=== PATIENT | male | born 1930 | race Caucasian/White ===

== ENCOUNTER 2018-04-12 01:04 | Inpatient (IN) ==
[2018-04-12] MEDS ORDERED: Acetaminophen 650 MG Supp RECTAL ONE (01:11)
[2018-04-12] MEDS ORDERED: Vancomycin Inj 1,000 MG in Sodium Chlor 0.9% Inj 250 ML IV.SIG ONE (01:11)
[2018-04-12] MEDS ORDERED: Piperacil/Tazo 4.5 GM Premix 4.5 GM/100 ML BAG IV.SIG SCH (01:15)
[2018-04-12 01:42] LABS: Baso # (Auto) 0.1 th/mm3 (0.0-0.2); Baso % (Auto) 0.3 % (0.0-2.0); Eos % (Auto) 0.1 % (0.0-4.0); Hematocrit 34.3 % (39.0-51.0); Hemoglobin 11.3 gm/dL (13.0-17.0); Lymph # (Auto) 0.9 th/mm3 (1.0-4.8); Lymph % (Auto) 3.5 % (9.0-44.0); Mean Corpuscular HGB Conc 32.8 % (32.0-36.0); Mean Corpuscular Hemoglobin 31.3 pg (27.0-34.0); Mean Corpuscular Volume 95.2 fL (80.0-100.0); Mean Platelet Volume 10.1 fL (7.0-11.0); Mono # (Auto) 1.3 th/mm3 (0.0-0.9); Mono % (Auto) 5.4 % (0.0-8.0); Neut # (Auto) 22.3 th/mm3 (1.8-7.7); Neut % (Auto) 90.7 % (16.0-70.0); Platelet Count 202 th/mm3 (150-450); Red Blood Count 3.61 mil/mm3 (4.50-5.90); Red Cell Distribution Width 13.8 % (11.6-17.2); White Blood Count 24.6 th/mm3 (4.0-11.0)
--- NOTE | 2018-04-12 01:48 | XR ---
EXAM DATE: 04/12/2018 1:42 AM EST AGE/SEX: 88 years / Male INDICATIONS: Fever. CLINICAL DATA: This is the patient's initial encounter. Patient reports that signs and symptoms have been present for 1 day and indicates a pain score of Nonresponsive. MEDICAL/SURGICAL HISTORY: Hypertension. Diabetes mellitus type II. Dementia. Intercerebral h emorrhage. None. COMPARISON: [facility] – [place], CHEST SINGLE AP, 04/23/2014. . FINDINGS: A single AP view of the chest demonstrates the lungs to be symmetrically hypoinflated without evidenc e of mass, infiltrate or effusion. Minimal atelectatic changes above the left hemidiaphragm The cardi omediastinal contours are unremarkable. Osseous structures are intact. CONCLUSION: 1. Hypoinflation with minimal atelectatic changes above the left hemidiaphragm. 2. Otherwise negative. No confluent infiltrate. Electronically signed by: Kash Cerrato MD Board Certified Radiologist 04/12/2018 1:47 AM EST
[2018-04-12 01:55] LABS: Alkaline Phosphatase 87 U/L (45-117); Total Protein 6.1 g/dL (6.4-8.2)
[2018-04-12 01:56] LABS: Alanine Aminotransferase 26 U/L (12-78); Albumin 2.3 g/dL (3.4-5.0); Anion Gap 6 meq/L (5-15); Aspartate Aminotransferase 18 U/L (15-37); Blood Urea Nitrogen 43 mg/dL (7-18); Calcium 8.6 mg/dL (8.5-10.1); Carbon Dioxide 29.6 meq/L (21.0-32.0); Chloride 104 meq/L (98-107); Glomerular Filtration Rate 31 mL/min (>89); Glucose,Random 204 mg/dL (74-106); Magnesium 1.9 mg/dL (1.5-2.5); Sodium 140 meq/L (136-145)
[2018-04-12 01:57] LABS: Potassium 5.1 meq/L (3.5-5.1)
[2018-04-12] MEDS ORDERED: Sodium Chlor 0.9% Inj 500 ML IV.SIG SCH (02:00)
[2018-04-12] MEDS ORDERED: Acetaminophen 325 MG Tablet PO PRN (02:07)
[2018-04-12] MEDS ORDERED: Vancomycin Consult Pharmacy OTHER PRN (02:07)
[2018-04-12] MEDS ORDERED: Bisacodyl 10 MG Supp RECTAL PRN (02:07)
--- NOTE | 2018-04-12 02:09 | ED ---
HPI General Stated Complaint: medical Time Seen by Provider: 04/12/18 01:07 Source: patient and EMS Mode of arrival: EMS Limitations: no limitations and altered mental status History of Present Illness HPI narrative: 88-year-old male came to the emergency room by EMS from the detention after he was found altered mental status and hypoxic by the detention staff during their midnight rounds. Patient felt warm to them and hypoxic. 911 was called and when EMS arrived patient was on a nonrebreather. Normally as per the detention staff patient is alert, oriented x1. However currently he is eyes closed and noncommunicative. Rectal temperature is 99.8. Patient is unable to give any meaningful history. Related Data Home Medications Medication Instructions Recorded Confirmed acetaminophen 650 mg DE DAILY PRN 04/12/18 04/12/18 alprazolam 0.25 mg PO BID 04/12/18 04/12/18 divalproex [Depakote Sprinkles] 375 mg PO BID 04/12/18 04/12/18 ferrous sulfate 325 mg PO DAILY 04/12/18 04/12/18 ipratropium-albuterol 3 ml INHALATION Q6H PRN 04/12/18 04/12/18 latanoprost 1 drp OPHTHALMIC (EYE) QPM 04/13/18 04/13/18 mirtazapine [Remeron] 15 mg PO DAILY 04/13/18 04/13/18 Previous Rx's Medication Instructions Recorded amoxicillin-pot clavulanate 1 tab PO BID #14 tab 04/13/18 [Augmentin] magnesium hydroxide [Milk of 30 ml PO Q12H PRN 30 Days #118 ml 04/13/18 Magnesia] Allergies Allergy/AdvReac Type Severity Reaction Status Date / Time No Known Allergies Allergy Verified 04/12/18 01:55 Review of Systems ROS Unobtainable ROS Unobtainable: unobtainable due to mental status PMFSH Medical History Medical History Alcohol abuse (Acute) Anxiety (Acute) Dementia (Acute) Diabetes (Acute) Grade I diastolic dysfunction (Acute) Hypertension (Acute) Intracerebral hemorrhage (Acute) Muscle weakness (Acute) Surgical History Surgical History History of cholecystectomy (Acute) History of squamous cell carcinoma excision (Acute) Family History Family History Mother Stomach cancer Sister Stroke Stomach cancer Brother Stroke Social History Social History Substance History: No History of Abuse and Past History Second Hand Smoke Exposure: No Smoking Status: Former smoker (Quit in 1976) How Often Do You Have a Drink Containing Alcohol: Never (Drank 1 pint of gin daily until entering SNF) Recent Travel in [facility] within the Last 8 Weeks: No Recent Out of Country Travel within the Last 8 Weeks: No Exam Narrative Exam Narrative: GENERAL: Elderly, eyes closed, moderate distress, noncommunicative SKIN: Focused skin assessment warm/dry. HEAD: Atraumatic. Normocephalic. EYES: Pupils equal and round. No scleral icterus. No injection or drainage. ENT: No nasal bleeding or discharge. Mucous membranes pink and moist. NECK: Trachea midline. No JVD. CARDIOVASCULAR: Regular rate and rhythm. No murmur appreciated. RESPIRATORY: No accessory muscle use. Coarse crackles bilateral GASTROINTESTINAL: Abdomen soft, non-tender, nondistended. Hepatic and splenic margins not palpable. MUSCULOSKELETAL: No obvious deformities. No clubbing. No cyanosis. No edema. NEUROLOGICAL: GCS of 10. No obvious cranial nerve deficits. Motor grossly within normal limits. Noncommunicative PSYCHIATRIC: Appropriate mood and affect; insight and judgment normal. Course Initial Documented Vital Signs Temperature 99.8 F H 04/12/18 01:29 Pulse Rate 84 04/12/18 01:29 Respiratory Rate 18 04/12/18 01:29 Blood Pressure 136/64 04/12/18 01:29 Pulse Oximetry 94 L 04/12/18 01:29 Last Documented Vital Signs Temperature 97.9 F 04/14/18 11:18 Pulse Rate 66 04/14/18 12:00 Respiratory Rate 20 04/14/18 11:18 Blood Pressure 125/76 04/14/18 11:18 Pulse Oximetry 95 04/14/18 11:18 Critical Care Time Critical Care Time: Yes Total Critical Care Time: 30 Attestation: Aggregate critical care time was 30 minutes. Time to perform other separately billable procedures was not included in the critical care time. My time did not include minutes spent treating any other patients simultaneously or on activities that did not directly contribute to the patient's treatment. The services I provided to this patient were to treat and/or prevent clinically significant deterioration that could result in: Sepsis, sepsis protocol I provided critical care services requiring my management, as noted below: Chart data review, documentation time, medication orders and management, vital sign assessments/reviewing monitor data, ordering and reviewing lab tests, ordering and interpreting/reviewing x-rays and diagnostic studies, care of the patient and discussion of the patient with the admitting physicians. Medical Decision Making MDM Narrative Medical decision making narrative: 2:06 AM blood test results are back and patient has significantly elevated leukocytes with left shift. Lactic acid is elevated. Chest x-ray has been read by the radiologist negative. Patient is getting IV fluid bolus and Zosyn and vancomycin for sepsis coverage. Patient has been admitted to the hospitalist. Patient is a full code as per the paperwork. Medical Screen Exam Complete: Yes Emergency Medical Condition: Yes Lab Data Result diagrams: 04/13/18 12:04 04/13/18 04:58 Lab Results 04/12/18 04/12/18 04/12/18 Range/Units 01:20 01:20 01:20 WBC 24.6 H (4.0-11.0) th/mm3 RBC 3.61 L (4.50-5.90) mil/mm3 Hgb 11.3 L (13.0-17.0) gm/dL Hct 34.3 L (39.0-51.0) % MCV 95.2 (80.0-100.0) fL MCH 31.3 (27.0-34.0) pg MCHC 32.8 (32.0-36.0) % RDW 13.8 (11.6-17.2) % Plt Count 202 (150-450) th/mm3 MPV 10.1 (7.0-11.0) fL Prelim Diff (Auto) Slide review pending Neut % (Auto) 90.7 H (16.0-70.0) % Lymph % (Auto) 3.5 L (9.0-44.0) % [place] % (Auto) 5.4 (0.0-8.0) % Eos % (Auto) 0.1 (0.0-4.0) % Baso % (Auto) 0.3 (0.0-2.0) % Neut # (Auto) 22.3 H (1.8-7.7) th/mm3 Lymph # (Auto) 0.9 L (1.0-4.8) th/mm3 Benton # (Auto) 1.3 H (0.0-0.9) th/mm3 Eos # (Auto) 0.0 (0.0-0.4) th/mm3 Baso # (Auto) 0.1 (0.0-0.2) th/mm3 WBC Differential Manual diff final Seg Neuts % (Manual) 73 H (16-70) % Band Neuts % (Manual) 20 H (0-6) % Lymphocytes % (Manual) 1 L (9-44) % Monocytes % (Manual) 5 (0-8) % Metamyelocytes % (Man) 1 (0-1) % Abs Neuts (Manual) 23.1 H (1.8-7.7) th/mm3 Differential Comment . Toxic Vacuolation Present H (None) Platelet Estimate Normal (Normal) Platelet Morphology Normal (Normal) Sodium 140 (136-145) meq/L Potassium 5.1 (3.5-5.1) meq/L Chloride 104 (98-107) meq/L Carbon Dioxide 29.6 (21.0-32.0) meq/L Anion Gap 6 (5-15) meq/L BUN 43 H (7-18) mg/dL Creatinine 2.05 H (0.60-1.30) mg/dL Estimated GFR 31 L (>89) mL/min Random Glucose 204 H (74-106) mg/dL Lactic Acid 3.3 H (0.4-2.0) mmol/L Calcium 8.6 (8.5-10.1) mg/dL Magnesium 1.9 (1.5-2.5) mg/dL Total Bilirubin 0.6 (0.2-1.0) mg/dL AST 18 (15-37) U/L ALT 26 (12-78) U/L Alkaline Phosphatase 87 (45-117) U/L Total Protein 6.1 L (6.4-8.2) g/dL Albumin 2.3 L (3.4-5.0) g/dL Urine Color (Yellw/Straw) Urine Clarity (Clear) Urine pH (5.0-8.5) Ur Specific [place] (1.002-1.035) Urine Protein (Neg-Trace) mg/dL Urine Glucose (UA) (Negative) mg/dL Urine Ketones (Negative) mg/dL Urine Occult Blood (Negative) Urine Nitrate (Negative) Urine Bilirubin (Negative) Urine Urobilinogen (Less than 2) mg/dL Ur Leukocyte Esterase (Negative) Urine RBC (0-3) /hpf Urine WBC (0-5) /hpf Urine WBC Clumps (None) Ur Squamous Epith Cells (0-5) /hpf Ur Renal Epithelial Cell (None) /hpf Urine Bacteria (None) /hpf Hyaline Casts (0-3) /lpf Granular Casts (None) /lpf Urine Mucus (Occasional) /lpf Micro UA Comment Ur Microscopic Review Urine Culture Comments 04/12/18 04/12/18 04/13/18 Range/Units 04:20 04:30 04:58 WBC (4.0-11.0) th/mm3 RBC (4.50-5.90) mil/mm3 Hgb (13.0-17.0) gm/dL Hct (39.0-51.0) % MCV (80.0-100.0) fL MCH (27.0-34.0) pg MCHC (32.0-36.0) % RDW (11.6-17.2) % Plt Count (150-450) th/mm3 MPV (7.0-11.0) fL Prelim Diff (Auto) Neut % (Auto) (16.0-70.0) % Lymph % (Auto) (9.0-44.0) % Benton % (Auto) (0.0-8.0) % Eos % (Auto) (0.0-4.0) % Baso % (Auto) (0.0-2.0) % Neut # (Auto) (1.8-7.7) th/mm3 Lymph # (Auto) (1.0-4.8) th/mm3 Benton # (Auto) (0.0-0.9) th/mm3 Eos # (Auto) (0.0-0.4) th/mm3 Baso # (Auto) (0.0-0.2) th/mm3 WBC Differential Seg Neuts % (Manual) (16-70) % Band Neuts % (Manual) (0-6) % Lymphocytes % (Manual) (9-44) % Monocytes % (Manual) (0-8) % Metamyelocytes % (Man) (0-1) % Abs Neuts (Manual) (1.8-7.7) th/mm3 Differential Comment Toxic Vacuolation (None) Platelet Estimate (Normal) Platelet Morphology (Normal) Sodium 143 (136-145) meq/L Potassium 4.2 D (3.5-5.1) meq/L Chloride 112 H D (98-107) meq/L Carbon Dioxide 25.5 (21.0-32.0) meq/L Anion Gap 6 (5-15) meq/L BUN 34 H (7-18) mg/dL Creatinine 1.29 (0.60-1.30) mg/dL Estimated GFR 53 L (>89) mL/min Random Glucose 81 D (74-106) mg/dL Lactic Acid 2.5 H (0.4-2.0) mmol/L Calcium 8.1 L (8.5-10.1) mg/dL Magnesium (1.5-2.5) mg/dL Total Bilirubin 0.6 (0.2-1.0) mg/dL AST 21 (15-37) U/L ALT 19 (12-78) U/L Alkaline Phosphatase 75 (45-117) U/L Total Protein 5.6 L (6.4-8.2) g/dL Albumin 2.0 L (3.4-5.0) g/dL Urine Color [place] (Yellw/Straw) Urine Clarity Cloudy H (Clear) Urine pH 5.0 (5.0-8.5) Ur Specific [place] 1.020 (1.002-1.035) Urine Protein Negative (Neg-Trace) mg/dL Urine Glucose (UA) Negative (Negative) mg/dL Urine Ketones Negative (Negative) mg/dL Urine Occult Blood Negative (Negative) Urine Nitrate Negative (Negative) Urine Bilirubin Negative (Negative) Urine Urobilinogen 2.0 H (Less than 2) mg/dL Ur Leukocyte Esterase Trace H (Negative) Urine RBC 2 (0-3) /hpf Urine WBC 5 (0-5) /hpf Urine WBC Clumps Occasional H (None) Ur Squamous Epith Cells 1 (0-5) /hpf Ur Renal Epithelial Cell <1 (None) /hpf Urine Bacteria Rare H (None) /hpf Hyaline Casts 34 (0-3) /lpf Granular Casts 9 (None) /lpf Urine Mucus Few H (Occasional) /lpf Micro UA Comment Cath-culture ind Ur Microscopic Review Not Reportable Urine Culture Comments Cath-cult indicated 04/13/18 Range/Units 12:04 WBC 13.0 H (4.0-11.0) th/mm3 RBC 3.40 L (4.50-5.90) mil/mm3 Hgb 10.8 L (13.0-17.0) gm/dL Hct 32.7 L (39.0-51.0) % MCV 96.2 (80.0-100.0) fL MCH 31.8 (27.0-34.0) pg MCHC 33.1 (32.0-36.0) % RDW 13.9 (11.6-17.2) % Plt Count 172 (150-450) th/mm3 MPV 9.8 (7.0-11.0) fL Prelim Diff (Auto) Neut % (Auto) 81.1 H (16.0-70.0) % Lymph % (Auto) 10.0 (9.0-44.0) % Benton % (Auto) 7.3 (0.0-8.0) % Eos % (Auto) 1.4 (0.0-4.0) % Baso % (Auto) 0.2 (0.0-2.0) % Neut # (Auto) 10.5 H (1.8-7.7) th/mm3 Lymph # (Auto) 1.3 (1.0-4.8) th/mm3 Benton # (Auto) 1.0 H (0.0-0.9) th/mm3 Eos # (Auto) 0.2 (0.0-0.4) th/mm3 Baso # (Auto) 0.0 (0.0-0.2) th/mm3 WBC Differential . Seg Neuts % (Manual) (16-70) % Band Neuts % (Manual) (0-6) % Lymphocytes % (Manual) (9-44) % Monocytes % (Manual) (0-8) % Metamyelocytes % (Man) (0-1) % Abs Neuts (Manual) (1.8-7.7) th/mm3 Differential Comment Auto diff final Toxic Vacuolation (None) Platelet Estimate (Normal) Platelet Morphology (Normal) Sodium (136-145) meq/L Potassium (3.5-5.1) meq/L Chloride (98-107) meq/L Carbon Dioxide (21.0-32.0) meq/L Anion Gap (5-15) meq/L BUN (7-18) mg/dL Creatinine (0.60-1.30) mg/dL Estimated GFR (>89) mL/min Random Glucose (74-106) mg/dL Lactic Acid (0.4-2.0) mmol/L Calcium (8.5-10.1) mg/dL Magnesium (1.5-2.5) mg/dL Total Bilirubin (0.2-1.0) mg/dL AST (15-37) U/L ALT (12-78) U/L Alkaline Phosphatase (45-117) U/L Total Protein (6.4-8.2) g/dL Albumin (3.4-5.0) g/dL Urine Color (Yellw/Straw) Urine Clarity (Clear) Urine pH (5.0-8.5) Ur Specific [place] (1.002-1.035) Urine Protein (Neg-Trace) mg/dL Urine Glucose (UA) (Negative) mg/dL Urine Ketones (Negative) mg/dL Urine Occult Blood (Negative) Urine Nitrate (Negative) Urine Bilirubin (Negative) Urine Urobilinogen (Less than 2) mg/dL Ur Leukocyte Esterase (Negative) Urine RBC (0-3) /hpf Urine WBC (0-5) /hpf Urine WBC Clumps (None) Ur Squamous Epith Cells (0-5) /hpf Ur Renal Epithelial Cell (None) /hpf Urine Bacteria (None) /hpf Hyaline Casts (0-3) /lpf Granular Casts (None) /lpf Urine Mucus (Occasional) /lpf Micro UA Comment Ur Microscopic Review Urine Culture Comments Imaging Data Radiologist's impression: Chest X-Ray 04/12/18 01:11 CONCLUSION: 1. Hypoinflation with minimal atelectatic changes above the left hemidiaphragm. 2. Otherwise negative. No confluent infiltrate. ECG Data Attestation: I personally reviewed and interpreted this ECG as follows: Discharge Plan Discharge Disposition Patient Disposition: ED Admit(ED Internal Use Only) Discharge Condition Condition: Fair Discharge Order Discharge Orders: Discharge Order (Routine); Ordered 04/14/18 Ordered By: Magda Gupta ED Use Only Admit Order (Routine); Ordered 04/12/18 Ordered By: Marilu Chappell Discharge Details Anticipated Discharge Date: 04/14/18 Physicians Team ED Provider: Marilu Chappell Primary Care Provider: Josep Pacheco Attending Provider: Magda Gupta Other Providers: Kali Powers ; [facility] ED Status: Left Department Discharge Information Discharge Date/Time: 04/12/18 06:20
[2018-04-12] MEDS ORDERED: Sod Chloride 0.9% Inj 1,000 ML IV.SIG SCH (02:15)
[2018-04-12 02:27] LABS: Lymphocytes 1 % (9-44); Metamyelocytes 1 % (0-1); Monocytes 5 % (0-8)
[2018-04-12 02:30] LABS: Platelet Estimate Normal (Normal); Platelet Morphology Normal (Normal); Toxic Vacuolation Present
--- NOTE | 2018-04-12 03:05 | P.HPIM ---
History of Present Illness Primary Care Physician: Josep Pacheco DO History of Present Illness: This is an 88-year-old male with a PMH of Anxiety, Dementia, HTN and h/o ICH who was brought to the ER by EMS from SNF for AMS and hypoxia. Per report, pt normally oriented x1 at baseline, however noted to be more lethargic, non-verbal. Unable to obtain history from patient due to AMS. Upon EMS arrival, noted to be hypotensive w/ BP 70's. BP 136/64, HR 84, O2 sat 94% on RA, Temp 99.8. WBC 24.6. Creatinine 2.05, no previous labs for comparison. Lactic Acid 3.3. UA negative. CXR with hypoinflation. S/p Vanc/ Zosyn in ER. Diagnosis (1) Sepsis: (2) Encephalopathy: (3) ARLEEN (acute kidney injury): Inpatient Certification Inpatient Certification: I certify that the inpatient services were ordered in accordance with Medicare regulations governing the order. This includes certification that hospital inpatient services are reasonable and necessary and in the case of services not specified as inpatient-only under 42 CFR 419.22(n), that they are appropriately provided as inpatient services in accordance to with the 2-midnight benchmark under 43 CFR 412.3(e) Estimated Total Length of Stay (Days): 2 Plans for Post Hospital Care: Not yet determined Review of Systems PAST FAMILY HISTORY: Unknown ROS Unobtainable: unobtainable due to mental condition and unobtainable due to mental status PMFSH Medical History Medical History Alcohol abuse (Acute) Anxiety (Acute) Dementia (Acute) Hypertension (Acute) Intracerebral hemorrhage (Acute) Muscle weakness (Acute) Social History Social History Recent Travel in [facility] within the Last 8 Weeks: No Recent Out of Country Travel within the Last 8 Weeks: No Medications and Allergies Allergies Allergy/AdvReac Type Severity Reaction Status Date / Time No Known Allergies Allergy Verified 04/12/18 01:55 Active Medications: Active Medications Acetaminophen (Tylenol) 650 mg PO Q4H PRN PRN Reason: Temp > 100.4 Al Hydroxide/Mg Hydroxide (Milk Of Magnesia Liq) 30 ml PO Q12H PRN PRN Reason: Mild Constipation Bisacodyl (Dulcolax Supp) 10 mg RECTAL DAILY PRN PRN Reason: SEVERE CONSITIPATION Piperacillin/Tazobactam/Dextrose (Zosyn 4.5 Gm Premix) 4.5 gm in 100 mls @ 200 mls/hr IV.SIG ONCE KWAME Last Admin: 04/12/18 01:54 Dose: 200 mls/hr Sodium Chloride (Ns Inj) 1,000 mls @ 1,000 mls/hr IV.SIG BOLUS KWAME Stop: 04/12/18 03:14 Cefepime HCl 1,000 mg/ Sodium (Chloride) 100 mls @ 200 mls/hr IV.SIG Q12H KWAME Sodium Chloride (Ns Inj) 1,000 mls @ 100 mls/hr IV.CONT .Q10H KWAME Lactulose (Lactulose Liq) 30 ml PO DAILY PRN PRN Reason: SEVERE CONSITIPATION Ondansetron HCl (Zofran Inj) 4 mg IV.PUSH Q6H PRN PRN Reason: NAUSEA OR VOMITING Pharmacy Profile Note (Vancomycin Consult Pharmacy) 1 each OTHER UNSCH PRN PRN Reason: Pharmacy to dose Senna/Docusate Sodium (Gege-Colace) 1 tab PO BID KWAME Sennosides (Senokot) 17.2 mg PO Q12H PRN PRN Reason: Moderate Constipation Sodium Chloride (Ns Flush) 2 ml IV.FLUSH BID KWAME Sodium Chloride (Ns Flush) 2 ml IV.FLUSH PRN PRN PRN Reason: FLUSH AFTER USING IV ACCESS Physical Exam Vital signs: Vital Signs 04/12/18 01:29 04/12/18 01:56 Temperature 99.8 F H Pulse Rate 84 82 Respiratory Rate 18 Blood Pressure 136/64 114/56 L Pulse Oximetry 94 L 98 Narrative: PE: GENERAL: Elderly male in no acute distress, not following commands, nonverbal. SKIN: Focused skin assessment warm and dry. HEENT: PERRLA, EOMI. No scleral icterus or conjunctival pallor. No lid lag or facial droop. CARDIOVASCULAR: Regular rate and rhythm. No obvious murmurs to auscultation. No chest tenderness to palpation. RESPIRATORY: No obvious rhonchi or wheezing. Clear to auscultation. Breath sounds equal bilaterally. GASTROINTESTINAL: Abdomen soft, non-tender, nondistended. BS normal. MUSCULOSKELETAL: Extremities without clubbing, cyanosis, or edema. No obvious deformities. NEUROLOGICAL: Eyes closed, not following commands, nonverbal. No focal neurologic deficits. Moving both upper and lower extremities spontaneously. PSYCHIATRIC: Appropriate mood and affect. Insight and judgment normal. Results Labs CBC & Chem 7: 04/12/18 01:20 04/12/18 01:20 Imaging Impressions Chest X-Ray 04/12/18 01:11 CONCLUSION: 1. Hypoinflation with minimal atelectatic changes above the left hemidiaphragm. 2. Otherwise negative. No confluent infiltrate. Caprini VTE Risk Assessment Caprini VTE Risk Assessment: No/Low Risk (score <= 1) Caprini Risk Assessment Model: Point Value = 1 Point Value = 2 Point Value = 3 Point Value = 5 Age 41-60 Minor surgery BMI > 25 kg/m2 Swollen legs Varicose veins or History of unexplained or recurrent spontaneous Oral contraceptives or hormone replacement Sepsis (< 1 month) Serious lung disease, including pneumonia (< 1 month) Abnormal pulmonary function Acute myocardial infarction Congestive heart failure (< 1 month) History of inflammatory bowel disease Medical patient at bed rest Age 61-74 Arthroscopic surgery Major open surgery (> 45 min) Laparoscopic surgery (> 45 min) Malignancy Confined to bed (> 72 hours) Immobilizing plaster cast Central venous access Age >= 75 History of VTE Family history of VTE Factor V Leiden Prothrombin [id number] Lupus anticoagulant Anticardiolipin antibodies Elevated serum homocysteine Heparin-induced thrombocytopenia Other congenital or acquired thrombophilia Stroke (< 1 month) Elective arthroplasty Hip, pelvis, or leg fracture Acute spinal cord injury (< 1 month) Prophylaxis Regimen: Total Risk Factor Score Risk Level Prophylaxis Regimen 0-1 Low Early ambulation 2 Moderate Order ONE of the following: *Sequential Compression Device (SCD) *Heparin 5000 units SQ BID 3-4 Higher Order ONE of the following medications: *Heparin 5000 units SQ TID *Enoxaparin/Lovenox 40 mg SQ daily (WT < 150 kg, CrCl > 30 mL/min) *Enoxaparin/Lovenox 30 mg SQ daily (WT < 150 kg, CrCl > 10-29 mL/min) *Enoxaparin/Lovenox 30 mg SQ BID (WT < 150 kg, CrCl > 30 mL/min) AND/OR *Sequential Compression Device (SCD) 5 or more Highest Order ONE of the following medications: *Heparin 5000 units SQ TID (Preferred with Epidurals) *Enoxaparin/Lovenox 40 mg SQ daily (WT < 150 kg, CrCl > 30 mL/min) *Enoxaparin/Lovenox 30 mg SQ daily (WT < 150 kg, CrCl > 10-29 mL/min) *Enoxaparin/Lovenox 30 mg SQ BID (WT < 150 kg, CrCl > 30 mL/min) AND *Sequential Compression Device (SCD) Assessment and Plan (1) Sepsis: Code(s): A41.9 - Sepsis, unspecified organism Status: Acute (2) Encephalopathy: Code(s): G93.40 - Encephalopathy, unspecified Status: Acute (3) ARLEEN (acute kidney injury): Code(s): N17.9 - Acute kidney failure, unspecified Status: Acute Plan A/P: 1. Sepsis: Temp 99.8, HR 98, WBC 24, Lactic Acid 3.3 and Hypotension, Source- suspect underlying PNA/Aspiration, s/p Blood Cultures, will follow, continue IV Abx, IVF for hydration, repeat lactic acid, hold antihypertensives in light of hypotension. 2. Encephalopathy: Per records oriented x1 at baseline, now not following commands, nonverbal, likely secondary to acute infection, Neuro Checks. 3. ARLEEN: Creatinine 2.04, no previous labs for comparison, presumably new, U/a negative for UTI, IVF, monitor I/O, avoid nephrotoxic agents, repeat labs in am. 4. DVT Prophylaxis: SCD/Teds 5. Social work for d/c planning as needed. 6. Case discussed w/ ER physician at length, labs/records/imaging reviewed by me.
[2018-04-12] MEDS: Sod Chloride 0.9% Inj 1,000 ML IV.CONT SCH ×3 (04:46→21:17)
[2018-04-12 04:48] LABS: Bacteria,Urine Rare /hpf; Bilirubin,Urine Negative (Negative); Clarity,Urine Cloudy (Clear); Color,Urine Amber (Yellw/Straw); Glucose,Urine (UA) Negative (Negative); Hyaline Casts,Urine 34 /lpf (0-3); Leukocyte Esterase,Urine Trace (Negative); Mucus,Urine Few /lpf (Occasional); Nitrite,Urine Negative (Negative); Renal Epithelial Cells,Urine <1 /hpf; Squamous Epithelial Cell,Urine 1 /hpf (0-5)
[2018-04-12] MEDS: Senna/Docusate Sodium 8.6/50 MG Tablet PO SCH ×2 (08:28→20:23)
[2018-04-12] MEDS: Piperacil/Tazo 3.375 GM Premix 3.375 GM/50 ML PIGGYBACK IV.SIG SCH ×2 (14:52→20:21)
--- NOTE | 2018-04-12 16:28 | P.CONPAL ---
Consult Service: Palliative Care Requesting Physician: Shyann Martinez Reason for Consult: a. To assist with evaluation and management of symptoms including: Confusion, dyspnea b. To assist medical decision maker(s) with: better understanding of current medical conditions; weighing benefits/burdens of medical treatment options; making medical treatment decisions. 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 His baseline orientation is oriented to self however became more lethargic and nonverbal. He was hypotensive with a systolic blood pressure in the 70s upon EMS arrival. He was given fluid resuscitation with recovery of his blood pressure to 136/64, oxygen saturation 94%, temperature 99.8 WBC 24.6, Creatinine 2.05 and lactic acid 3.3. Urinalysis was found to be negative. Clinical data on admission: * WBC 24.6, Hgb 11.3, HCT 34.3, PLT 202, sodium 140, potassium 5.1, BUN 43, creatinine 2.05, glucose 204. * Chest x-ray showed hypoinflation with minimal atelectatic changes above the left hemidiaphragm otherwise negative. * Speech therapy evaluation on admission showed moderate oropharyngeal phase dysphasia without overt signs or symptoms of aspiration with pured solids and nectar thick liquids. Review of past visits indicate that in 2014 his renal indices were BUN 13, creatinine 1.03. His last visit to [facility] was in 04/2014. On evaluation this is an elderly male, well-developed, well-nourished, sitting up in bed staring at the TV. He does not respond to voice and did not make eye contact when I stood in front of him. He was unable to provide any meaningful history. He was alert and oriented to self only, which appears to be his baseline. There is no family in the room. . Function/Cognitive Trajectory: He resides in a [facility] facility. His baseline orientation is to self only. Based on laboratory values, it appears that he is somewhat dehydrated as there is not a known history of chronic kidney disease. He was found to have moderate oropharyngeal dysphasia on admission. Based on today's assessment, he appears to be a FAST score 7A. Per my discussion with his son, Tomy, he has been mostly non-interactive for several years. . Review of Systems Patient is nonverbal and unable to provide their own ROS. A 12 part ROS taken as best as possible from medical record and available family. Respiratory: Reports shortness of breath Neurologic: Reports confusion [facility] - History History Provided By: Medical Record, Exchange Clerk / EMT - Medical History Medical History: Medical History (Last Updated 04/12/18 @ 16:30 by DEANGELO Samano) Alcohol abuse Anxiety Dementia Diabetes Grade I diastolic dysfunction Hypertension Intracerebral hemorrhage Muscle weakness - Surgical History Surgical History: Surgical History (Last Updated 04/12/18 @ 16:33 by DEANGELO Samano) History of cholecystectomy History of squamous cell carcinoma excision - Family History Family History: Family History (Last Updated 04/12/18 @ 16:33 by DEANGELO Samano) Mother Stomach cancer Sister Stroke Stomach cancer Brother Stroke - Tobacco History Second Hand Smoke Exposure: No Tobacco Use In Past 30 Days: No Smoking Status: Former smoker (Quit in 1976) - Alcohol History How Often Do You Have a Drink Containing Alcohol: Never (Drank 1 pint of gin daily until entering SNF) - Substance Use History Substance History: No History of Abuse, Past History - Travel History Recent Travel in the [facility] Within the Last 8 Weeks: No Recent Travel Out of the Country Within the Last 8 Weeks: No - Immunization History Tetanus Immunization: <5 Years Medications and Allergies Active Medications: Active Medications Acetaminophen (Tylenol) 650 mg PO Q4H PRN PRN Reason: Temp > 100.4 Al Hydroxide/Mg Hydroxide (Milk Of Magnesia Liq) 30 ml PO Q12H PRN PRN Reason: Mild Constipation Bisacodyl (Dulcolax Supp) 10 mg RECTAL DAILY PRN PRN Reason: SEVERE CONSITIPATION Sodium Chloride (Ns Inj) 1,000 mls @ 50 mls/hr IV.CONT .Q20H [facility] Last Infusion: 04/12/18 13:46 Dose: 50 mls/hr Piperacillin/Tazobactam/Dextrose (Zosyn 3.375 Gm Premix) 3.375 gm in 50 mls @ 100 mls/hr IV.SIG Q6H [facility] Last Infusion: 04/12/18 16:15 Dose: Infused Lactulose (Lactulose Liq) 30 ml PO DAILY PRN PRN Reason: SEVERE CONSITIPATION Ondansetron HCl (Zofran Inj) 4 mg IV.PUSH Q6H PRN PRN Reason: NAUSEA OR VOMITING Senna/Docusate Sodium (Gege-Colace) 1 tab PO BID [facility] Last Admin: 04/12/18 08:28 Dose: Not Given Sennosides (Senokot) 17.2 mg PO Q12H PRN PRN Reason: Moderate Constipation Sodium Chloride (Ns Flush) 2 ml IV.FLUSH BID [facility] Last Admin: 04/12/18 08:28 Dose: Not Given Sodium Chloride (Ns Flush) 2 ml IV.FLUSH PRN PRN PRN Reason: FLUSH AFTER USING IV ACCESS Allergies Allergy/AdvReac Type Severity Reaction Status Date / Time No Known Allergies Allergy Verified 04/12/18 01:55 Home Medications Medication Instructions Recorded Confirmed Type acetaminophen 650 mg [place] DAILY PRN 04/12/18 04/12/18 History alprazolam 0.25 mg PO BID 04/12/18 04/12/18 History carvedilol 3.125 mg PO DAILY 04/12/18 04/12/18 History divalproex [Depakote Sprinkles] 375 mg PO BID 04/12/18 04/12/18 History docusate sodium [Colace] 100 mg PO HS 04/12/18 04/12/18 History ferrous sulfate 325 mg PO DAILY 04/12/18 04/12/18 History ipratropium-albuterol 3 ml INHALATION Q6H PRN 04/12/18 04/12/18 History Advance Directives Living Will: Unknown Physical Exam Vital Signs: Vital Signs - 24 hr 04/12/18 01:29 04/12/18 01:56 04/12/18 02:10 Temperature 99.8 F H Pulse Rate 84 82 109 H Respiratory Rate 18 Blood Pressure 136/64 114/56 L Pulse Oximetry 94 L 98 04/12/18 03:40 04/12/18 04:40 04/12/18 05:40 Temperature Pulse Rate 82 86 77 Respiratory Rate 20 20 20 Blood Pressure 147/65 H 139/62 133/63 Pulse Oximetry 96 96 97 04/12/18 06:32 04/12/18 06:38 04/12/18 07:00 Temperature 97.4 F L Pulse Rate 85 85 77 Respiratory Rate 19 Blood Pressure 110/75 Pulse Oximetry 98 04/12/18 08:00 04/12/18 11:00 04/12/18 12:00 Temperature 97.6 F 98.8 F Pulse Rate 69 71 80 Respiratory Rate 18 18 Blood Pressure 110/80 95/63 L Pulse Oximetry 97 99 I&O: Intake & Output 04/10/18 04/11/18 04/12/18 04/13/18 06:59 06:59 06:59 06:59 Intake Total 1850 / 1850 150 / 150 Output Total 200 / 200 Balance 1650 / 1650 150 / 150 Weight 150 lb 9.211 oz Physical Exam: CONSTITUTIONAL/GENERAL: This is a thin elderly male, in no apparent distress. TUBES/LINES/DRAINS: PIV SKIN: No jaundice, rashes, or lesions. Ecchymoses on upper extremities. No wounds seen anteriorly. Skin temperature appropriate. Not diaphoretic. HEAD: Atraumatic. Normocephalic. EYES: Pupils equal and round and reactive. Extraocular motions intact. No scleral icterus. No injection or drainage. Fundi not examined. ENT: Hearing diminished. Nose without bleeding or purulent drainage. Not cooperative oral exam. NECK: Trachea midline. Supple, nontender. No palpable thyroid enlargement or nodularity. CARDIOVASCULAR: Regular rate and rhythm without murmurs, gallops, or rubs. No JVD. Peripheral pulses symmetric. RESPIRATORY/CHEST: Symmetric, unlabored respirations. Clear, diminished to auscultation. Breath sounds equal bilaterally. No wheezes, rales, or rhonchi. GASTROINTESTINAL: Abdomen soft, non-tender, nondistended. No hepato-splenomegaly , or palpable masses. No guarding. Bowel sounds present. GENITOURINARY: Without palpable bladder distension. MUSCULOSKELETAL: Extremities without clubbing, cyanosis, or edema. No joint tenderness or effusion noted. No calf tenderness. No mottling or clubbing. LYMPHATICS: No palpable cervical or supraclavicular adenopathy. NEUROLOGICAL: Awake and alert. Motor and sensory grossly within normal limits. Does not follow commands, oriented to self. PSYCHIATRIC: Mild anxiety, somewhat flat affect. . Diagnostic Tests Laboratory: Laboratory Results - last 72 hr 04/12/18 04/12/18 04/12/18 01:20 01:20 01:20 WBC 24.6 H RBC 3.61 L Hgb 11.3 L Hct 34.3 L MCV 95.2 MCH 31.3 MCHC 32.8 RDW 13.8 Plt Count 202 MPV 10.1 Prelim Diff (Auto) Slide review pending Neut % (Auto) 90.7 H Lymph % (Auto) 3.5 L Putnam % (Auto) 5.4 Eos % (Auto) 0.1 Baso % (Auto) 0.3 Neut # (Auto) 22.3 H Lymph # (Auto) 0.9 L Putnam # (Auto) 1.3 H Eos # (Auto) 0.0 Baso # (Auto) 0.1 WBC Differential Manual diff final Seg Neuts % (Manual) 73 H Band Neuts % (Manual) 20 H Lymphocytes % (Manual) 1 L Monocytes % (Manual) 5 Metamyelocytes % (Man) 1 Abs Neuts (Manual) 23.1 H Differential Comment . Toxic Vacuolation Present H Platelet Estimate Normal Platelet Morphology Normal Sodium 140 Potassium 5.1 Chloride 104 Carbon Dioxide 29.6 Anion Gap 6 BUN 43 H Creatinine 2.05 H Estimated GFR 31 L Random Glucose 204 H Lactic Acid 3.3 H Calcium 8.6 Magnesium 1.9 Total Bilirubin 0.6 AST 18 ALT 26 Alkaline Phosphatase 87 Total Protein 6.1 L Albumin 2.3 L Urine Color Urine Clarity Urine pH Ur Specific Hardin Urine Protein Urine Glucose (UA) Urine Ketones Urine Occult Blood Urine Nitrate Urine Bilirubin Urine Urobilinogen Ur Leukocyte Esterase Urine RBC Urine WBC Urine WBC Clumps Ur Squamous Epith Cells Ur Renal Epithelial Cell Urine Bacteria Hyaline Casts Granular Casts Urine Mucus Micro UA Comment Ur Microscopic Review Urine Culture Comments 04/12/18 04/12/18 04:20 04:30 WBC RBC Hgb Hct MCV MCH MCHC RDW Plt Count MPV Prelim Diff (Auto) Neut % (Auto) Lymph % (Auto) Putnam % (Auto) Eos % (Auto) Baso % (Auto) Neut # (Auto) Lymph # (Auto) Putnam # (Auto) Eos # (Auto) Baso # (Auto) WBC Differential Seg Neuts % (Manual) Band Neuts % (Manual) Lymphocytes % (Manual) Monocytes % (Manual) Metamyelocytes % (Man) Abs Neuts (Manual) Differential Comment Toxic Vacuolation Platelet Estimate Platelet Morphology Sodium Potassium Chloride Carbon Dioxide Anion Gap BUN Creatinine Estimated GFR Random Glucose Lactic Acid 2.5 H Calcium Magnesium Total Bilirubin AST ALT Alkaline Phosphatase Total Protein Albumin Urine Color Giovanna Urine Clarity Cloudy H Urine pH 5.0 Ur Specific Hardin 1.020 Urine Protein Negative Urine Glucose (UA) Negative Urine Ketones Negative Urine Occult Blood Negative Urine Nitrate Negative Urine Bilirubin Negative Urine Urobilinogen 2.0 H Ur Leukocyte Esterase Trace H Urine RBC 2 Urine WBC 5 Urine WBC Clumps Occasional H Ur Squamous Epith Cells 1 Ur Renal Epithelial Cell <1 Urine Bacteria Rare H Hyaline Casts 34 Granular Casts 9 Urine Mucus Few H Micro UA Comment Cath-culture ind Ur Microscopic Review Not Reportable Urine Culture Comments Cath-cult indicated Result Diagrams: 04/12/18 01:20 04/12/18 01:20 Imaging: ITS Impressions Chest X-Ray 04/12/18 01:11 CONCLUSION: 1. Hypoinflation with minimal atelectatic changes above the left hemidiaphragm. 2. Otherwise negative. No confluent infiltrate. Patient/Family Conference Present at Family Conference: Spoke with patient's son, Tomy, who is a fuselage framer who lives in [place]. He states his brother Ochoa RigginsJr., (goes by Andrea) lives locally and provides most of his care and decision-making. He thinks that there is a healthcare surrogate form completed but does not have a copy of it. He believes it is his brother, Andrea, would be the surrogate. Reviewed clinical course, interventions attempted, goals of medical treatment patient's current clinical status, past medical, social, family, psychosocial history. Reviewed palliative care purpose and focus as regarding symptom management and support in formulating goals of care. Reviewed CODE STATUS and advanced directives, as well as the below listed items. Provided palliative care contact information. All questions answered to the best of my ability. Tomy will discuss with the family and provide palliative care contact information and request that the family contact me for further decision-making. Reviewed with Tomy CODE STATUS and goals of medical treatment, as well as the benefits and burdens of each intervention. Plan to set up conference call/meeting with family in the coming days to determine medical goals. . Family Conference Location: Telephone Issues Discussed: * Palliative care role, purpose, approach * Additional medical, psychosocial, and spiritual history * Patients general health, functional status, and cognitive changes in the months leading up to the current hospitalization * Patient/family understanding of the current medical problems * Patient/family understanding of prognosis * Patients goals of care as best understood from advance directives and/or conversations and/or values * Current medical treatment options and benefits/burdens of those options * Likely scenarios comparing ongoing aggressive care with a transition to comfort measures only * Questions answered to the best of my ability * Palliative care contact information provided Assessment and Plan Pertinent Non-Medical Issues: Psychosocial: Had lived with his locally, however both and now have dementia and are placed in facilities. He had previously worked in [employer]. He has a son, Andrea who lives locally. 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 Legal: Reportedly has healthcare surrogate/POA paperwork completed but not available at this time. Ethical issues impacting care: Pending contact with the remainder of the family to determine healthcare decision maker. . Important Contacts: Son: Tomy Riggins . Prognosis: His prognosis is guarded. He has severe dementia, oropharyngeal dysphasia at risk for aspiration. He was admitted with altered mental status hypoxia, dehydration. He has multiple comorbid conditions and he is at high risk for continued complications, decline and hospitalizations. He would be hospice appropriate if goals were consistent. . Code Status: Full Code Plan: PLAN: Legal decision maker: The patient is not capacitated for decision-making and it is unsure whether he will ever regain capacity. Per his son, Tomy, advanced directives have been completed, but he is not certain which of his siblings is the surrogate. Pending contact with the local brother, Rosendo ArenasJr. susan, to determine designated decision-maker. Until decision maker has been identified, per [place] statutes, the majority of his adult children would be joint decision -makers. Goals: To be determined CODE STATUS: FULL CODE SYMPTOMS: * Confusion: He has baseline dementia and presented with worsening altered mental status. At this time he appears to be at his baseline per my discussion with his son, Tomy. * Dyspnea: Improving on current therapy. Demonstrated severe oropharyngeal dysphasia on swallow eval and is at risk for aspiration and subsequent sequelae. Currently stable on room air. Palliative care will continue to follow the patient during hospital course as condition evolves, to assist patient/decision-maker with understanding of their medical conditions, weighing benefits/burdens of treatment options, for clarification of goals of treatment. Additionally will assist with any symptoms of palliative concern. . Appreciation Thank you for the opportunity to participate in the care of Ochoa Riggins. Attestation Attestation: To help prompt me to consider important information that might be impacting today's encounter and assessment, information from prior notes written by myself or my colleagues may have been "brought forward" into today's note. My signature on this note, however, is an attestation that I personally performed the exam, history, and/or decision-making noted today, and, unless otherwise indicated, the interactions with patient, family, and staff as well as the review of records all occurred today. I also attest that the listed assessment and stated plan reflect my best clinical judgment today based on the combination of historical information, prior notes, and today's exam/ interactions. When time spent is documented, it refers only to time spent today by the signer, or if indicated, combined time spent today by collaborating physician/nurse practitioner. .
--- NOTE | 2018-04-12 20:25 | P.PNIM ---
Patient seen/examined. H does not say more than one or two words. Patient was admitted for suspected aspiration pneumonia. He was on Cefepime and Vancomycin. We will switch to Zosyn 3.375g Q6hrs. Later in the day, RN informed me that patient's son stated that patient was DNR at [facility] and he wants the patient to remain DNR here in the hospital as well. I switched code status to DNR. Patient was evaluated by speech. We consulted Palliative care as well. If oral feeding continues to pose a risk for aspiration and given his dementia, I believe hospice care should be considered.
[2018-04-13] MEDS: Piperacil/Tazo 3.375 GM Premix 3.375 GM/50 ML PIGGYBACK IV.SIG SCH ×4 (02:57→21:29)
[2018-04-13 07:05] LABS: Alanine Aminotransferase 19 U/L (12-78); Alkaline Phosphatase 75 U/L (45-117); Anion Gap 6 meq/L (5-15); Blood Urea Nitrogen 34 mg/dL (7-18); Calcium 8.1 mg/dL (8.5-10.1); Carbon Dioxide 25.5 meq/L (21.0-32.0); Chloride 112 meq/L (98-107); Glomerular Filtration Rate 53 mL/min (>89); Glucose,Random 81 mg/dL (74-106); Sodium 143 meq/L (136-145); Total Protein 5.6 g/dL (6.4-8.2)
[2018-04-13 07:17] LABS: Aspartate Aminotransferase 21 U/L (15-37); Potassium 4.2 meq/L (3.5-5.1)
[2018-04-13] MEDS: Senna/Docusate Sodium 8.6/50 MG Tablet PO SCH ×2 (08:45→21:31)
--- NOTE | 2018-04-13 09:43 | P.PNIM ---
Subjective Interval history: Follow-up for aspiration pneumonia, dementia. Patient is currently resting in bed. He is awake and continues to move his mouth. When asked several times, he only answers doing okay. Per RN, no other acute concerns. Patient has been afebrile. Currently on room air. Physical Exam Vital signs: Vital Signs 04/12/18 11:00 04/12/18 12:00 04/12/18 15:00 Temperature 98.8 F Pulse Rate 71 80 89 Respiratory Rate 18 Blood Pressure 95/63 L Pulse Oximetry 99 04/12/18 16:00 04/12/18 19:00 04/12/18 20:00 Temperature 98.4 F 98.5 F Pulse Rate 77 82 85 Respiratory Rate 18 18 Blood Pressure 93/55 L 91/52 L Pulse Oximetry 99 98 04/12/18 23:00 04/13/18 00:00 04/13/18 02:31 Temperature 98.1 F Pulse Rate 82 90 73 Respiratory Rate 18 Blood Pressure 120/75 Pulse Oximetry 96 04/13/18 03:02 04/13/18 08:00 Temperature 98.6 F 98.3 F Pulse Rate 77 74 Respiratory Rate 16 16 Blood Pressure 99/54 L 137/67 Pulse Oximetry 97 74 L Intake & Output 04/12/18 04/13/18 04/13/18 18:59 06:59 18:59 Intake Total 1230 / 1230 580 / 580 Output Total 275 / 275 250 / 250 Balance 955 / 955 330 / 330 Weight 69 kg Intake: IV 1150 / 1150 100 / 100 NS Inj 1,000 ML @ 50 mls/hr IV. 1000 / 1000 CONT .Q20H [facility] Rx#:[id number] Maxipime Inj 1,000 MG In NS Inj 100 / 100 100 ML @ 200 mls/hr IV.SIG Q12H [facility] Rx#:[id number] Zosyn 3.375 GM Premix 3.375 gm 50 / 50 100 / 100 In 50 ml @ 100 mls/hr IV.SIG Q6H [facility] Rx#:[id number] Oral 80 / 80 480 / 480 Output: Urine 275 / 275 250 / 250 Other: # Incontinent Voids 1 Date of Last Bowel Movement 04/12/18 04/12/18 04/12/18 # Bowel Movements 1 # Incontinent Bowel Movements 2 Narrative: GENERAL: Alert, continuously moves his mouth, no acute distress. SKIN: Warm and dry. HEAD: Normocephalic. EYES: No scleral icterus. No injection or drainage. NECK: Supple, trachea midline. No JVD or lymphadenopathy. CARDIOVASCULAR: Regular rate and rhythm without murmurs, gallops, or rubs. RESPIRATORY: Breath sounds equal bilaterally. No accessory muscle use. GASTROINTESTINAL: Abdomen soft, non-tender, nondistended. MUSCULOSKELETAL: No cyanosis, or edema. BACK: Nontender without obvious deformity. No CVA tenderness. Results Labs CBC & Chem 7: 04/12/18 01:20 04/13/18 04:58 Assessment and Plan Plan This is an 88-year-old male with a PMH of Anxiety, Dementia, HTN and h/o ICH who was brought to the ER by EMS from SNF for AMS and hypoxia. Lactic acid was 3.3. Aspiration pneumonia was suspected to be the etiology. Probable aspiration pneumonia We switched from cefepime and vancomycin to Zosyn yesterday. We will continue Zosyn for aspiration pneumonia. Upon discharge we can continue Augmentin. Speech therapy evaluation completed yesterday and recommended pured diet and nectar consistency liquids. Palliative care input appreciated. Continue normal saline at 50 mL/h. 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 Urine culture pending. Results should be available by today. Acute kidney injury Creatinine on admission 2.05. Currently 1.29. Continue IV hydration. DNR. Will start patient on Lovenox 30mg Qday for DVT Prophylaxis. Discharge plan: We can likely discharge patient today/tomorrow on Augmentin.
[2018-04-13] MEDS: Enoxaparin Inj 30 MG/0.3 ML Syringe SQ SCH (11:21)
[2018-04-13 12:36] LABS: Baso % (Auto) 0.2 % (0.0-2.0); Eos # (Auto) 0.2 th/mm3 (0.0-0.4); Eos % (Auto) 1.4 % (0.0-4.0); Hematocrit 32.7 % (39.0-51.0); Hemoglobin 10.8 gm/dL (13.0-17.0); Lymph # (Auto) 1.3 th/mm3 (1.0-4.8); Mean Corpuscular HGB Conc 33.1 % (32.0-36.0); Mean Corpuscular Hemoglobin 31.8 pg (27.0-34.0); Mean Corpuscular Volume 96.2 fL (80.0-100.0); Mean Platelet Volume 9.8 fL (7.0-11.0); Mono % (Auto) 7.3 % (0.0-8.0); Neut # (Auto) 10.5 th/mm3 (1.8-7.7); Neut % (Auto) 81.1 % (16.0-70.0); Platelet Count 172 th/mm3 (150-450); Red Cell Distribution Width 13.9 % (11.6-17.2)
--- NOTE | 2018-04-13 16:09 | P.PNPAL ---
Reason for Visit Reason for visit: a. To assist with evaluation and management of symptoms including: Confusion, dyspnea, dysphasia b. To assist medical decision maker(s) with: better understanding of current medical conditions; weighing benefits/burdens of medical treatment options; making medical treatment decisions. 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 His baseline orientation is oriented to self however became more lethargic and nonverbal. He was hypotensive with a systolic blood pressure in the 70s upon EMS arrival. He was given fluid resuscitation with recovery of his blood pressure to 136/64, oxygen saturation 94%, temperature 99.8 WBC 24.6, Creatinine 2.05 and lactic acid 3.3. Urinalysis was found to be negative. Patient seen today for medically necessary follow-up to evaluate symptom management of confusion, dyspnea and dysphagia. Labs today show a decrease in WBC, patient is afebrile. His dyspnea is improving on antibiotic therapy. He is saturating adequately on room air without evident dyspnea engage in conversation and only speaks about 1 word, usually okay or no. Speech therapy notes that patient continues to have severe oral phase dysphasia with suspected moderate pharyngeal phase deficits. She is recommending pured solids and nectar thick liquids. Family/Friend Interactions: Spoke with the patient's son, Andrea, who wishes to enroll the patient in hospice for better medical oversight with the eventual goal of transferring him to [place] to be closer to where Andrea lives. Initial goal is to transfer him back to the senior care with hospice oversight and make further plans once he can determine what hospice services are available in his area. Consult placed. . Objective Vital Signs: Vital Signs 04/12/18 19:00 04/12/18 20:00 04/12/18 23:00 Temperature 98.5 F Pulse Rate 82 85 82 Respiratory Rate 18 Blood Pressure 91/52 L Pulse Oximetry 98 04/13/18 00:00 04/13/18 02:31 04/13/18 03:02 Temperature 98.1 F 98.6 F Pulse Rate 90 73 77 Respiratory Rate 18 16 Blood Pressure 120/75 99/54 L Pulse Oximetry 96 97 04/13/18 08:00 04/13/18 10:00 04/13/18 11:24 Temperature 98.3 F 98.2 F Pulse Rate 74 63 75 Respiratory Rate 16 16 Blood Pressure 137/67 126/71 Pulse Oximetry 98 97 04/13/18 11:45 04/13/18 12:00 04/13/18 12:45 Temperature 98.2 F Pulse Rate 81 75 75 Respiratory Rate 16 Blood Pressure 126/71 Pulse Oximetry 04/13/18 15:14 Temperature 98.4 F Pulse Rate 81 Respiratory Rate 18 Blood Pressure 115/67 Pulse Oximetry 97 Intake & Output 04/12/18 04/13/18 04/13/18 18:59 06:59 18:59 Intake Total 1230 / 1230 580 / 580 100 / 100 Output Total 275 / 275 250 / 250 Balance 955 / 955 330 / 330 100 / 100 Weight 152 lb 1.903 oz Intake: IV 1150 / 1150 100 / 100 100 / 100 NS Inj 1,000 ML @ 50 mls/hr IV. 1000 / 1000 CONT .Q20H [facility] Rx#:[id number] Maxipime Inj 1,000 MG In NS Inj 100 / 100 100 ML @ 200 mls/hr IV.SIG Q12H [facility] Rx#:[id number] Zosyn 3.375 GM Premix 3.375 gm 50 / 50 100 / 100 100 / 100 In 50 ml @ 100 mls/hr IV.SIG Q6H [facility] Rx#:[id number] Oral 80 / 80 480 / 480 Output: Urine 275 / 275 250 / 250 Other: # Incontinent Voids 1 Date of Last Bowel Movement 04/12/18 04/12/18 04/12/18 # Bowel Movements 1 # Incontinent Bowel Movements 2 Physical Exam: CONSTITUTIONAL/GENERAL: This is a thin elderly male, in no apparent distress. TUBES/LINES/DRAINS: PIV SKIN: No jaundice, rashes, or lesions. Ecchymoses on upper extremities. No wounds seen anteriorly. Skin temperature appropriate. Not diaphoretic. NECK: Trachea midline. Supple, nontender. No palpable thyroid enlargement or nodularity. CARDIOVASCULAR: Regular rate and rhythm without murmurs, gallops, or rubs. No JVD. Peripheral pulses symmetric. RESPIRATORY/CHEST: Symmetric, unlabored respirations. Clear, diminished to auscultation. Breath sounds equal bilaterally. No wheezes, rales, or rhonchi. GASTROINTESTINAL: Abdomen soft, non-tender, nondistended. No hepato-splenomegaly , or palpable masses. No guarding. Bowel sounds present. GENITOURINARY: Without palpable bladder distension. MUSCULOSKELETAL: Extremities without clubbing, cyanosis, or edema. No joint tenderness or effusion noted. No calf tenderness. No mottling or clubbing. NEUROLOGICAL: Lethargic, arousable. Motor and sensory grossly within normal limits. Does not follow commands, oriented to self. PSYCHIATRIC: Mild anxiety, somewhat flat affect. . Diagnostic Tests Laboratory: Laboratory Results - last 72 hr 04/12/18 04/12/18 04/12/18 01:20 01:20 01:20 WBC 24.6 H RBC 3.61 L Hgb 11.3 L Hct 34.3 L MCV 95.2 MCH 31.3 MCHC 32.8 RDW 13.8 Plt Count 202 MPV 10.1 Prelim Diff (Auto) Slide review pending Neut % (Auto) 90.7 H Lymph % (Auto) 3.5 L [place] % (Auto) 5.4 Eos % (Auto) 0.1 Baso % (Auto) 0.3 Neut # (Auto) 22.3 H Lymph # (Auto) 0.9 L [place] # (Auto) 1.3 H Eos # (Auto) 0.0 Baso # (Auto) 0.1 WBC Differential Manual diff final Seg Neuts % (Manual) 73 H Band Neuts % (Manual) 20 H Lymphocytes % (Manual) 1 L Monocytes % (Manual) 5 Metamyelocytes % (Man) 1 Abs Neuts (Manual) 23.1 H Differential Comment . Toxic Vacuolation Present H Platelet Estimate Normal Platelet Morphology Normal Sodium 140 Potassium 5.1 Chloride 104 Carbon Dioxide 29.6 Anion Gap 6 BUN 43 H Creatinine 2.05 H Estimated GFR 31 L Random Glucose 204 H Lactic Acid 3.3 H Calcium 8.6 Magnesium 1.9 Total Bilirubin 0.6 AST 18 ALT 26 Alkaline Phosphatase 87 Total Protein 6.1 L Albumin 2.3 L Urine Color Urine Clarity Urine pH Ur Specific [place] Urine Protein Urine Glucose (UA) Urine Ketones Urine Occult Blood Urine Nitrate Urine Bilirubin Urine Urobilinogen Ur Leukocyte Esterase Urine RBC Urine WBC Urine WBC Clumps Ur Squamous Epith Cells Ur Renal Epithelial Cell Urine Bacteria Hyaline Casts Granular Casts Urine Mucus Micro UA Comment Ur Microscopic Review Urine Culture Comments 04/12/18 04/12/18 04/13/18 04:20 04:30 04:58 WBC RBC Hgb Hct MCV MCH MCHC RDW Plt Count MPV Prelim Diff (Auto) Neut % (Auto) Lymph % (Auto) [place] % (Auto) Eos % (Auto) Baso % (Auto) Neut # (Auto) Lymph # (Auto) [place] # (Auto) Eos # (Auto) Baso # (Auto) WBC Differential Seg Neuts % (Manual) Band Neuts % (Manual) Lymphocytes % (Manual) Monocytes % (Manual) Metamyelocytes % (Man) Abs Neuts (Manual) Differential Comment Toxic Vacuolation Platelet Estimate Platelet Morphology Sodium 143 Potassium 4.2 D Chloride 112 H D Carbon Dioxide 25.5 Anion Gap 6 BUN 34 H Creatinine 1.29 Estimated GFR 53 L Random Glucose 81 D Lactic Acid 2.5 H Calcium 8.1 L Magnesium Total Bilirubin 0.6 AST 21 ALT 19 Alkaline Phosphatase 75 Total Protein 5.6 L Albumin 2.0 L Urine Color [place] Urine Clarity Cloudy H Urine pH 5.0 Ur Specific [place] 1.020 Urine Protein Negative Urine Glucose (UA) Negative Urine Ketones Negative Urine Occult Blood Negative Urine Nitrate Negative Urine Bilirubin Negative Urine Urobilinogen 2.0 H Ur Leukocyte Esterase Trace H Urine RBC 2 Urine WBC 5 Urine WBC Clumps Occasional H Ur Squamous Epith Cells 1 Ur Renal Epithelial Cell <1 Urine Bacteria Rare H Hyaline Casts 34 Granular Casts 9 Urine Mucus Few H Micro UA Comment Cath-culture ind Ur Microscopic Review Not Reportable Urine Culture Comments Cath-cult indicated 04/13/18 12:04 WBC 13.0 H RBC 3.40 L Hgb 10.8 L Hct 32.7 L MCV 96.2 MCH 31.8 MCHC 33.1 RDW 13.9 Plt Count 172 MPV 9.8 Prelim Diff (Auto) Neut % (Auto) 81.1 H Lymph % (Auto) 10.0 [place] % (Auto) 7.3 Eos % (Auto) 1.4 Baso % (Auto) 0.2 Neut # (Auto) 10.5 H Lymph # (Auto) 1.3 [place] # (Auto) 1.0 H Eos # (Auto) 0.2 Baso # (Auto) 0.0 WBC Differential . Seg Neuts % (Manual) Band Neuts % (Manual) Lymphocytes % (Manual) Monocytes % (Manual) Metamyelocytes % (Man) Abs Neuts (Manual) Differential Comment Auto diff final Toxic Vacuolation Platelet Estimate Platelet Morphology Sodium Potassium Chloride Carbon Dioxide Anion Gap BUN Creatinine Estimated GFR Random Glucose Lactic Acid Calcium Magnesium Total Bilirubin AST ALT Alkaline Phosphatase Total Protein Albumin Urine Color Urine Clarity Urine pH Ur Specific [place] Urine Protein Urine Glucose (UA) Urine Ketones Urine Occult Blood Urine Nitrate Urine Bilirubin Urine Urobilinogen Ur Leukocyte Esterase Urine RBC Urine WBC Urine WBC Clumps Ur Squamous Epith Cells Ur Renal Epithelial Cell Urine Bacteria Hyaline Casts Granular Casts Urine Mucus Micro UA Comment Ur Microscopic Review Urine Culture Comments Result Diagrams: 04/13/18 12:04 04/13/18 04:58 Microbiology: Microbiology 04/12/18 01:10 Aerobic Blood Culture - Preliminary Blood - Peripheral No growth in 1 day Anaerobic Blood Culture - Preliminary No growth in 1 day 04/12/18 01:20 Aerobic Blood Culture - Preliminary Blood - Peripheral No growth in 1 day Anaerobic Blood Culture - Preliminary No growth in 1 day 04/12/18 04:20 Urine Culture - Preliminary Catheterized Urine No growth in 24 hours Assessment and Plan Pertinent Non-Medical Issues: Psychosocial: Had lived with his locally, however both and now have dementia and are placed in facilities. He had previously worked in [employer]. He has a son, Andrea who lives locally. Spiritual: [employer] Dist[employer] available. Legal: Reportedly has healthcare surrogate/POA paperwork completed but not available at this time. Ethical issues impacting care: Pending contact with the remainder of the family to determine healthcare decision maker. . Important Contacts: Son: Tomy Riggins Son: Lissette Andrea Riggins Jr. [phone] decision-maker . Prognosis: His prognosis is guarded. He has severe dementia, oropharyngeal dysphasia at risk for aspiration. He was admitted with altered mental status hypoxia, dehydration. He has multiple comorbid conditions and he is at high risk for continued complications, decline and hospitalizations. He would be hospice appropriate if goals were consistent. . Code Status: No Code DNR Plan: PLAN: Legal decision maker: The patient is not capacitated for decision-making and it is unsure whether he will ever regain capacity. Ochoa Mendez Jr. is the [facility] for his father. Goals: Comfort oriented CODE STATUS: DO NOT RESUSCITATE SYMPTOMS: * Confusion: He has baseline dementia and presented with worsening altered mental status. At this time he appears to be at his baseline per my discussion with his sons. * Dyspnea: Improving on current therapy. Demonstrated severe oropharyngeal dysphasia on swallow eval and is at risk for aspiration and subsequent sequelae. Currently stable on room air. Palliative care will continue to follow the patient during hospital course as condition evolves, to assist patient/decision-maker with understanding of their medical conditions, weighing benefits/burdens of treatment options, for clarification of goals of treatment. Additionally will assist with any symptoms of palliative concern. . Attestation Attestation: To help prompt me to consider important information that might be impacting today's encounter and assessment, information from prior notes written by myself or my colleagues may have been "brought forward" into today's note. My signature on this note, however, is an attestation that I personally performed the exam, history, and/or decision-making noted today, and, unless otherwise indicated, the interactions with patient, family, and staff as well as the review of records all occurred today. I also attest that the listed assessment and stated plan reflect my best clinical judgment today based on the combination of historical information, prior notes, and today's exam/ interactions. When time spent is documented, it refers only to time spent today by the signer, or if indicated, combined time spent today by collaborating physician/nurse practitioner. .
[2018-04-13] MEDS: Sod Chloride 0.9% Inj 1,000 ML IV.CONT SCH (18:04)
[2018-04-14] MEDS: Piperacil/Tazo 3.375 GM Premix 3.375 GM/50 ML PIGGYBACK IV.SIG SCH ×2 (02:10→08:37)
[2018-04-14] MEDS ORDERED: ALPRAZolam 0.25 MG Tablet PO SCH (09:00)
[2018-04-14] MEDS ORDERED: Divalproex 125 MG Sprinkles Capsule PO SCH (09:00)
--- NOTE | 2018-04-14 10:14 | P.PNIM ---
Subjective Interval history: Follow-up for aspiration pneumonia and dementia On room air, no complaints, denies any shortness of breath, feels good today. Physical Exam Vital signs: Vital Signs 04/13/18 11:24 04/13/18 11:45 04/13/18 12:00 Temperature 98.2 F 98.2 F Pulse Rate 75 81 75 Respiratory Rate 16 16 Blood Pressure 126/71 126/71 Pulse Oximetry 97 04/13/18 12:45 04/13/18 15:14 04/13/18 16:00 Temperature 98.4 F Pulse Rate 75 81 73 Respiratory Rate 18 Blood Pressure 115/67 Pulse Oximetry 97 04/13/18 20:00 04/13/18 23:12 04/14/18 00:00 Temperature 97.7 F 98.2 F Pulse Rate 71 76 70 Respiratory Rate 18 18 16 Blood Pressure 137/82 140/95 H Pulse Oximetry 99 98 04/14/18 04:00 Temperature 98.5 F Pulse Rate 65 Respiratory Rate 16 Blood Pressure 101/56 L Pulse Oximetry 97 Intake & Output 04/13/18 04/14/18 04/14/18 18:59 06:59 18:59 Intake Total 1390 / 1390 220 / 220 Output Total 250 / 250 Balance 1390 / 1390 -30 / -30 Weight 68.5 kg Intake: IV 1050 / 1050 100 / 100 NS Inj 1,000 ML @ 50 mls/hr IV. 950 / 950 CONT .Q20H [facility] Rx#:[id number] Zosyn 3.375 GM Premix 3.375 gm 100 / 100 100 / 100 In 50 ml @ 100 mls/hr IV.SIG Q6H [facility] Rx#:[id number] Oral 340 / 340 120 / 120 Output: Urine 250 / 250 Other: # Incontinent Voids 3 Date of Last Bowel Movement 04/13/18 04/14/18 # Bowel Movements 1 Narrative: GENERAL: Alert, not in distress, on room air. CARDIOVASCULAR: Regular rate and rhythm without murmurs, gallops, or rubs. RESPIRATORY: Breath sounds equal bilaterally. No accessory muscle use. GASTROINTESTINAL: Abdomen soft, non-tender, nondistended. MUSCULOSKELETAL: No cyanosis, or edema. Awake, not oriented, thinks he is at home, answers some questions fluently. Results Labs CBC & Chem 7: 04/13/18 12:04 04/13/18 04:58 Labs: Microbiology 04/12/18 04:20 Catheterized Urine Urine Culture - Final No growth in 48 hours 04/12/18 01:10 Blood - Peripheral Aerobic Blood Culture - Preliminary No growth in 1 day 04/12/18 01:10 Blood - Peripheral Anaerobic Blood Culture - Preliminary No growth in 1 day 04/12/18 01:20 Blood - Peripheral Aerobic Blood Culture - Preliminary No growth in 1 day 04/12/18 01:20 Blood - Peripheral Anaerobic Blood Culture - Preliminary No growth in 1 day Assessment and Plan Plan This is an 88-year-old male with a PMH of Anxiety, Dementia, HTN and h/o ICH who was brought to the ER by EMS from SNF for AMS and hypoxia. Lactic acid was 3.3. Aspiration pneumonia was suspected to be the etiology. Probable aspiration pneumonia We switched from cefepime and vancomycin to Zosyn yesterday. On Zosyn, switch toAugmentin. Speech therapy evaluation completed yesterday and recommended pured diet and nectar consistency liquids. Palliative care input appreciated. Patient will be made hospice. 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 Urine culture no growth in 48 hours. Acute kidney injury Creatinine on admission 2.05. Currently 1.29. DC IVF. DNR. Lovenox 30mg Qday for DVT Prophylaxis. Discharge plan: We can discharge on Augmentin.
--- NOTE | 2018-04-14 10:25 | P.DS ---
DS: Providers Date of admission: 04/12/18 02:01 Primary care physician: Josep Pacheco DO Consults: 04/12/18 13:08 Consult to Palliative Care Routine Consulting Provider: Kali Powers Reason for Consultation: Dementia, aspiration. Notified:: Service Spoke with:: Madeleine Date Notified:: 04/12/18 Time Notified:: 13:47 Ordering Provider: NISHI 04/13/18 12:11 HUB Only Consult Order Routine Consulting Provider: [facility],[place] Brief History from admission: This is an 88-year-old male with a PMH of Anxiety , Dementia, HTN and h/o ICH who was brought to the ER by EMS from SNF for AMS and hypoxia. Per report, pt normally oriented x1 at baseline, however noted to be more lethargic, non-verbal. Unable to obtain history from patient due to AMS. Upon EMS arrival, noted to be hypotensive w/ BP 70's. BP 136/64, HR 84, O2 sat 94% on RA, Temp 99.8. WBC 24.6. Creatinine 2.05, no previous labs for comparison. Lactic Acid 3.3. UA negative. CXR with hypoinflation. S/p Vanc/ Zosyn in ER. DS: Diagnosis Discharge Diagnosis (1) Sepsis: Status: Acute (2) Pneumonia: Status: Acute DS: Summary This is an 88-year-old male with a PMH of Anxiety, Dementia, HTN and h/o ICH who was brought to the ER by EMS from SNF for AMS and hypoxia. Lactic acid was 3.3. Aspiration pneumonia was suspected to be the etiology. Patient was started on cefepime and vancomycin, switch to Zosyn. Cultures remain negative, urine culture no growth. Zosyn was switched to Augmentin.Speech therapy evaluation completed yesterday and recommended pured diet and nectar consistency liquids. Palliative care consulted, family decided on hospice. Patient also acute kidney injury on admission which resolved with volume resuscitation. Time Spent with Patient Total time spent providing and/or coordinating discharge services: Greater than 30 minutes Exam Narrative Exam Narrative: Narrative: GENERAL: Alert, not in distress, on room air. CARDIOVASCULAR: Regular rate and rhythm without murmurs, gallops, or rubs. RESPIRATORY: Breath sounds equal bilaterally. No accessory muscle use. GASTROINTESTINAL: Abdomen soft, non-tender, nondistended. MUSCULOSKELETAL: No cyanosis, or edema. Awake, not oriented, thinks he is at home, answers some questions fluently. Results Labs on day of discharge: Labs from last 24 hours 04/13/18 12:04 WBC 13.0 H RBC 3.40 L Hgb 10.8 L Hct 32.7 L MCV 96.2 MCH 31.8 MCHC 33.1 RDW 13.9 Plt Count 172 MPV 9.8 Neut % (Auto) 81.1 H Lymph % (Auto) 10.0 [place] % (Auto) 7.3 Eos % (Auto) 1.4 Baso % (Auto) 0.2 Neut # (Auto) 10.5 H Lymph # (Auto) 1.3 [place] # (Auto) 1.0 H Eos # (Auto) 0.2 Baso # (Auto) 0.0 WBC Differential . Differential Comment Auto diff final Preliminary micro results at discharge 04/12/18 01:10 Aerobic Blood Culture - Preliminary Blood - Peripheral No growth in 1 day Anaerobic Blood Culture - Preliminary No growth in 1 day 04/12/18 01:20 Aerobic Blood Culture - Preliminary Blood - Peripheral No growth in 1 day Anaerobic Blood Culture - Preliminary No growth in 1 day Impressions ITS Impressions Chest X-Ray 04/12/18 01:11 CONCLUSION: 1. Hypoinflation with minimal atelectatic changes above the left hemidiaphragm. 2. Otherwise negative. No confluent infiltrate. Discharge Plan Discharge Disposition Patient Disposition: [facility] Hospice/Med Facility Discharge Condition Condition: Fair Discharge Order Discharge Orders: Discharge Order (Routine); Ordered 04/14/18 Ordered By: Magda Gupta Discharge Details Anticipated Discharge Date: 04/14/18 Physicians Team Primary Care Provider: Josep Pacheco Attending Provider: Magda Gupta Other Providers: Kali Powers ; [facility] R[facility] /Orders / Referrals /Forms Prescriptions: New magnesium hydroxide [Milk of Magnesia] 400 mg/5 mL Suspension 30 ml PO Q12H PRN (Reason: Mild Constipation) 30 Days Qty: 118 RF: 3 amoxicillin-pot clavulanate [Augmentin] 875-125 mg tablet 1 tab PO BID Qty: 14 RF: 0 Continue acetaminophen 650 mg Suppository 650 mg IN DAILY PRN (Reason: Fever) RF: 0 ipratropium-albuterol 0.5 mg-3 mg(2.5 mg base)/3 mL Solution For Nebulization 3 ml INHALATION Q6H PRN (Reason: Congestion) RF: 0 alprazolam 0.25 mg Tablet 0.25 mg PO BID RF: 0 ferrous sulfate 325 mg (65 mg iron) Tablet 325 mg PO DAILY RF: 0 divalproex [Depakote Sprinkles] 125 mg Capsule, Delayed Rel Sprinkle 375 mg PO BID RF: 0 latanoprost 0.005 % Drops 1 drp OPHTHALMIC (EYE) QPM RF: 0 mirtazapine [Remeron] 15 mg Tablet 15 mg PO DAILY RF: 0 Discontinued carvedilol 3.125 mg Tablet 3.125 mg PO DAILY RF: 0 docusate sodium [Colace] 100 mg Capsule 100 mg PO HS RF: 0 lisinopril 10 mg Tablet 10 mg PO BID RF: 0 hydrochlorothiazide 12.5 mg Capsule 12.5 mg PO DAILY RF: 0 amlodipine [Norvasc] 10 mg Tablet 10 mg PO DAILY RF: 0 Referrals: Josep Pacheco DO [Primary Care Provider] - See Instructions Discharge Interventions Interventions: Discharge Planning - Case Management Last Done: 04/12/18 14:04 Status ED Status: Left Department
[2018-04-14 11:19] VITALS: BP 125/76; RESP 20; TEMP 97.9; O2SAT 95
[2018-04-14] MEDS: Enoxaparin Inj 30 MG/0.3 ML Syringe SQ SCH (12:21)
[2018-04-14 13:53] VITALS: PULSE 66
== END 2018-04-14 16:37 | disposition hospice, inpatient (51) | DRG 871 ==
LOC: NEPD 01:04 → NEDA 02:01 → HCIS 06:10
PROVIDERS: ADMIT Hospitalist; ATTEND Hospitalist
DX: F03.90 Unspecified dementia, unspecified severity, without behavioral disturbance, psychotic disturbance, mood disturbance, and anxiety; F41.9 Anxiety disorder, unspecified; Z66 Do not resuscitate; Z86.79 Personal history of other diseases of the circulatory system; I10 Essential (primary) hypertension; A41.9 Sepsis, unspecified organism; G93.49 Other encephalopathy; J69.0 Pneumonitis due to inhalation of food and vomit; I95.9 Hypotension, unspecified; R09.02 Hypoxemia; N17.9 Acute kidney failure, unspecified; R40.2422 Glasgow coma scale score 9-12, at arrival to emergency department; R13.11 Dysphagia, oral phase; Z85.818 Personal history of malignant neoplasm of other sites of lip, oral cavity, and pharynx; R13.13 Dysphagia, pharyngeal phase
CPT/HCPCS: 71010; 71045; 80053; 81001; 83605; 83735; 85025; 87040; 87086; 90765; 92526; 92610; 96365; 99285; G0195; J0692; J1650; J2543; J3370; J7030; J7040; J7050